=== PATIENT | male | born 1990 | race Caucasian/White ===

== ENCOUNTER 2019-12-25 21:58 | Emergency (ER) | payer OTHER ==
[~2019-12-25] VITALS: Ht 172.7 cm; Wt 88.0 kg
[2019-12-25 23:44] LABS: BASOPHILS % (AUTO) 0.2 % (0.0-2.0); EOSINOPHILS % (AUTO) 0.8 % (0.0-6.0); HEMATOCRIT 45 % (39-51); LYMPHOCYTES # (AUTO) 1.4 /CMM (0.8-4.8); LYMPHOCYTES % (AUTO) 26.8 % (20.0-44.0); MEAN CORPUSCULAR HGB CONC 34 g/dl (31.0-36.0); MEAN CORPUSCULAR VOLUME 89 fL (80-96); MONOCYTES # (AUTO) 0.4 /CMM (0.1-1.30); MONOCYTES % (AUTO) 7.1 % (2.0-12.0); NEUTROPHILS # (AUTO) 3.3 /CMM (1.8-8.9); NEUTROPHILS % (AUTO) 65.1 % (43.0-81.0); PLATELET COUNT (AUTO) 270 /CMM (150-450); RED BLOOD CELL COUNT(AUTO) 5.04 MIL/uL (4.5-6.0); WHITE BLOOD COUNT (AUTO) 5.1 K/uL (4.3-11.0)
--- NOTE | 2019-12-25 23:45 | NUR ---
RENEE AND LAMBERT FROM [facility] [place]. TO ER BED 11-B. INTOXICATED BUT AAOX4. NO RESP DISTRESS NOTED. AMBULATORY. CAME IN FOR SUICIDAL IDEATION BY VERBALIZIGN THAT HE WANT TO BLOW HIS BRAIN. DURING TRIAGE PT TOLD ME THAT HE WAS UPSET AT THAT TIME AND SAID THAT HE IS GOING TO HURT HIMSELF BUT WILL NOT DO IT. DENIES HI. NO HALLUCINATION. PT WAS PLACED ON 5150 HOLD FOR DANGER TO SELF BY LAMBERT. AT BEDSIDE FOR EVAL. PT IS COOPERATIVE AND COMPLAINT. PT IS PLACED ON 1 POINT RESTRAINT FOR SAFETY AND ELOPEMENT RISK.
[2019-12-25 23:54] LABS: CALCIUM, SERUM 8.5 mg/dL (8.5-10.1); CREATININE 1.3 mg/dL (0.6-1.3); POTASSIUM 4.2 mmol/L (3.5-5.1)
[2019-12-26] LABS: ALBUMIN 4.4 g/dL (3.4-5.0); BILIRUBIN,DIRECT 0.1 mg/dL (0.0-0.2); BILIRUBIN,TOTAL 0.4 mg/dL (0.2-1.0); TOTAL PROTEIN, SERUM 7.6 g/dL (6.4-8.2)
[2019-12-26 00:01] LABS: SALICYLATE 0.8 mg/dL (2.8-20.0)
--- NOTE | 2019-12-26 00:38 | NUR ---
URINE COLLECTED AND SENT TO STAT LAB
[2019-12-26 00:51] LABS: APPEARANCE,URINE Clear (CLEAR); BILIRUBIN,URINE Negative (NEGATIVE); BLOOD, URINE Negative Ery/uL (NEGATIVE); COLOR,URINE Yellow (YELLOW); KETONES,URINE Negative (NEGATIVE); LEUKOCYTE ESTERASE ,URINE Negative (NEGATIVE); NITRITE, URINE Negative (NEGATIVE); PROTEIN,URINE Negative (NEGATIVE); UGLUCOSE Negative (NEGATIVE); UROBILINOGEN,URINE 0.2 EU/dL (0.2)
[2019-12-26] MEDS ORDERED: LORAZEPAM 1 MG TABLET ONE (01:55)
[2019-12-26] MEDS ORDERED: LORAZEPAM 1 MG TABLET PO ONE (02:00)
--- NOTE | 2019-12-26 02:00 | NUR ---
pt verbalized that he is feeling anxious. made aware received order to give ativan 1mg po. noted and carried out. pt is off restraint, verbal aggreement between nurse. pt is cooperative and complaint.
--- NOTE | 2019-12-26 04:00 | NUR ---
pt is in bed sleeping. nad noted
--- NOTE | 2019-12-26 04:53 | NUR ---
LAT[facility] ([facility]) [phone]
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
--- NOTE | 2019-12-26 04:57 | NUR ---
MIGUEL A LLAMAS PAGED AND ENROUTE TO RIK
--- NOTE | 2019-12-26 05:58 | NUR ---
PLS CALL BACK AFTER EVAL FOR DISPOSITION PLAN DELIVERY STOCK CLERK ARTEMIO CAZARES [phone]
--- NOTE | 2019-12-26 06:30 | NUR ---
Patient discharged to home in stable condition. Written and verbal after care instructions given. Patient verbalizes understanding of instruction. Pt ambulatory with a steady gait
[2019-12-26 07:07] VITALS: BP 138/87
== END 2019-12-26 07:08 | disposition home or self-care (01) ==
LOC: ER 22:01
DX: F10.129 Alcohol abuse with intoxication, unspecified (principal); R45.851 Suicidal ideations; F43.10 Post-traumatic stress disorder, unspecified; Y90.6 Blood alcohol level of 120-199 mg/100 ml
CPT/HCPCS: 36415 ×2; 80048; 80076; 80305; 80307 ×2; 80329; 81001; 85025; 99285; G0480; 81000-TC